=== PATIENT | male | born 1945 | race Caucasian/White ===

== ENCOUNTER 2016-05-11 12:58 | Emergency (ER) | payer MEDICARE, BC ==
[2016-05-11 13:58] VITALS: BP 136/89
--- NOTE | 2016-05-11 15:24 | UC ---
Respiratory Complaint HPI - HPI Summary HPI Summary: cough for 6 weeks. For past week, feeling fatigued and low appetite. Feels feverish at times. Will cough to the point of gagging. Can't sleep well due to cough. Good appetite. Mild sinus congestion and PND. Nonsmoker, no asthma. - History of Current Complaint Chief Complaint: UCGeneralIllness Stated Complaint: COUGH Time Seen by Provider: 05/11/16 15:15 Hx Obtained From: Patient Onset/Duration: Gradual Onset, Lasting Weeks - 6 Timing: Constant Severity Initially: Mild Severity Currently: Moderate Character: Cough: Nonproductive Aggravating Factors: Exertion, Deep Breaths, Recumbent Position Alleviating Factors: Nothing Associated Signs And Symptoms: Positive: Dyspnea, Chills, Dizziness - when he has a coughing fit, URI, Nasal Congestion. Negative: Pleuritic Chest Pain, Wheezing, Hemoptysis - Risk Factors Pulmonary Embolism Risk Factors: Negative Cardiac Risk Factors: Hypertension, Elevated Lipids, CAD Pseudomonas Risk Factors: Negative Tuberculosis Risk Factors: Negative - Allergies/Home Medications Allergies/Adverse Reactions: Allergies Allergy/AdvReac Type Severity Reaction Status Date / Time Coffee Flavor AdvReac Vomiting Verified 12/23/14 12:02 Lemon Flavor AdvReac Vomiting Verified 12/23/14 12:02 PMH/Surg Hx/FS Hx/Imm Hx Endocrine History Of: Denies: Diabetes Cardiovascular History Of: Reports: Cardiac Disorders - CAD, Hypertension Denies: Pacemaker/ICD Respiratory History Of: Reports: COPD - Surgical History Surgical History: Yes Surgery Procedure, Year, and Place: CORNEA TRANSPLANT; TEETH REMOVED; TRIPLE BYPASS 2000; Rt WRIST-REMOVED CALCIUM; DOUBLE HERNIA HERNIA; CYST-BENIGN REMOVED FROM BACK; LUMBAR L3-5 HERNIATED DISC 03/27, shoulder surgery bilaterall. carpal tunnel - Family History Known Family History: Positive: Cardiac Disease, Hypertension - Social History Occupation: Retired Lives: With Family Alcohol Use: Rare Substance Use Type: None Smoking Status (MU): Former Smoker Type: Pipe Have You Smoked in the Last Year: No When Did the Patient Quit Smoking/Using Tobacco: ~1984 Review of Systems Constitutional: Fever - subjective, not measured, Chills, Fatigue Skin: Negative Eyes: Negative ENT: Nasal Discharge Respiratory: Cough - dry, hacking, can't stop once started Cardiovascular: Negative Gastrointestinal: Negative Genitourinary: Negative Motor: Negative Neurovascular: Negative Musculoskeletal: Negative Neurological: Negative Psychological: Negative All Other Systems Reviewed And Are Negative: Yes Physical Exam Triage Information Reviewed: Yes Appearance: Well-Appearing, No Pain Distress, Well-Nourished Vital Signs: Initial Vital Signs Temp 98.8 F 05/11/16 13:53 Pulse 93 05/11/16 13:53 Resp 16 05/11/16 13:53 BP 136/89 05/11/16 13:53 Pulse Ox 96 05/11/16 13:53 Vital Signs Reviewed: Yes Eye Exam: Normal Eyes: Positive: Conjunctiva Clear ENT: Positive: Pharyngeal erythema - mild, Nasal congestion, Nasal drainage, TMs normal. Negative: Tonsillar swelling, Tonsillar exudate, Trismus, Muffled/ hoarse voice Neck exam: Normal Neck: Positive: Supple Respiratory: Positive: Lungs clear - he can't take a breath without a hacking cough, Normal breath sounds, No respiratory distress, No accessory muscle use Cardiovascular Exam: Normal Musculoskeletal Exam: Normal Neurological Exam: Normal Psychological Exam: Normal Skin Exam: Normal UC Diagnostic Evaluation - Laboratory O2 Sat by Pulse Oximetry: 96 Diagnostic Studies Comment: CXR neg Respiratory Course/Dx - Differential Dx/Diagnosis Differential Diagnosis/HQI/PQRI: Bronchitis, Lower Resp Infection, Sinusitis Provider Diagnoses: bronchitis Discharge - Discharge Plan Condition: Stable Disposition: HOME Prescriptions: Cephalexin CAP* [Keflex CAP*] 500 mg PO TID #30 cap Hydrocodone Polistirex-Chlorph [Tussionex Pennkinetic Ext 10-8 mg/5Ml] 1 teasp PO BEDTIME PRN #60 ml MDD 5cc PRN Reason: Cough Patient Education Materials: Acute Bronchitis (ED) Referrals: Allison Hoover PA [Primary Care Provider] -
--- NOTE | 2016-05-11 15:51 | RAD ---
Indication: 6 weeks of cough. 2 views of the chest including dual energy PA views demonstrate no mediastinal shift. Heart is of normal size and configuration. Lung rose are clear. No changes noted since April 26, 2015. IMPRESSION: No active cardiopulmonary disease is noted. Patient is status post tracer thoracotomy.
== END 2016-05-11 16:12 | disposition home or self-care (01) ==
LOC: UCCORT 12:58
DX: J40 Bronchitis, not specified as acute or chronic (principal); R09.81 Nasal congestion; Z87.891 Personal history of nicotine dependence
CPT/HCPCS: 71020; 99212; G0463

== ENCOUNTER 2016-10-05 13:04 | Emergency (ER) | payer MEDICARE, BC ==
[2016-10-05 14:28] VITALS: BP 133/83
--- NOTE | 2016-10-05 14:41 | UC ---
Hand/Wrist HPI - HPI Summary HPI Summary: 71 yo male with right wrist pain/swelling and warmth x 3 day no injury hx gout hx right wrist surgery .30 yrs ago for "Calcium build up" - History Of Current Complaint Chief Complaint: UCUpperExtremity Stated Complaint: RIGHT WRIST COMPLAINT Time Seen by Provider: 10/05/16 14:32 Hx Obtained From: Patient Onset/Duration: Gradual Onset, Lasting Days Severity Initially: Moderate Severity Currently: Mild Pain Intensity: 3 Pain Scale Used: 0-10 Numeric Character Of Pain: Aching, Throbbing Aggravating Factor(s): Movement Alleviating: Rest Associated Signs And Symptoms: Positive: Swelling Related History: Dominant Hand Right - Allergies/Home Medications Allergies/Adverse Reactions: Allergies Allergy/AdvReac Type Severity Reaction Status Date / Time Coffee Flavor AdvReac Vomiting Verified 10/05/16 14:19 Lemon Flavor AdvReac Vomiting Verified 10/05/16 14:19 PMH/Surg Hx/FS Hx/Imm Hx Previously Healthy: Yes Endocrine History: Hypothyroidism, Dyslipidemia Cardiovascular History: Cardiac Disease, Hypertension - Surgical History Surgical History: Yes Surgery Procedure, Year, and Place: Right CORNEAL TRANSPLANT; TEETH REMOVED; TRIPLE BYPASS 2000; Rt WRIST-REMOVED CALCIUM; Laparoscopic inguinal hernia repair; CYST-BENIGN REMOVED FROM BACK; LUMBAR L3-5 HERNIATED DISC 03/27, shoulder surgery bilateral. carpal tunnel, Placement Lumbar dorsal column stimulator 2012, Hammer toes and bunionectomy bilateral feet - Family History Known Family History: Positive: Cardiac Disease, Hypertension - Social History Alcohol Use: None Substance Use Type: None Smoking Status (MU): Former Smoker Type: Pipe Have You Smoked in the Last Year: No When Did the Patient Quit Smoking/Using Tobacco: ~1984 Review of Systems Constitutional: Negative Skin: Negative Eyes: Negative ENT: Negative Respiratory: Negative Cardiovascular: Negative Gastrointestinal: Negative Genitourinary: Negative Motor: Negative Neurovascular: Negative Musculoskeletal: Arthralgia Neurological: Negative Psychological: Negative All Other Systems Reviewed And Are Negative: Yes Physical Exam Triage Information Reviewed: Yes Appearance: Well-Appearing, No Pain Distress, Well-Nourished Vital Signs: Initial Vital Signs Temp 97.8 F 10/05/16 14:22 Pulse 85 10/05/16 14:22 Resp 20 10/05/16 14:22 BP 133/83 10/05/16 14:22 Pulse Ox 98 10/05/16 14:22 Eyes: Positive: Conjunctiva Clear ENT: Negative: Hearing grossly normal, Nasal congestion, Nasal drainage, Trismus , Muffled/hoarse voice Neck: Positive: Supple, Nontender Respiratory: Positive: Lungs clear, Normal breath sounds, No respiratory distress, No accessory muscle use Cardiovascular: Positive: RRR, No Murmur. Negative: Tachycardia, Bradycardia Musculoskeletal: Positive: ROM Limited @ - right wrist, Other: - right wrist swollen and warm Neurological: Positive: Alert, Muscle Tone Normal Psychological Exam: Normal Skin Exam: Normal Hand/Wrist Course/Dx - Course Course Of Treatment: has carpal tunnel splint at home - Differential Dx/Diagnosis Provider Diagnoses: right wrist pain. DJD, ? gout vs pseudogout Discharge - Discharge Plan Condition: Stable Disposition: HOME Prescriptions: Prednisone [Deltasone] 40 mg PO DAILY #10 tab Patient Education Materials: Swollen Joint (ED) Referrals: Allison Hoover PA [Primary Care Provider] - Additional Instructions: wear your carpal tunnel splint as needed for comfort we will start a short course of prednisone in case this is gout or pseudo gout see your orthopedist later this week for follow up
--- NOTE | 2016-10-05 15:06 | RAD ---
INDICATION: Right wrist pain and swelling. TECHNIQUE: 3 views of the right wrist were obtained. FINDINGS: There is prominent soft tissue swelling present along the dorsal medial aspect of the wrist. There is deformity of the distal ulna possibly related to an old fracture. No acute fracture is seen. There is moderate to severe osteoarthritic change in the first carpal metacarpal joint. There are multiple surgical clips which project along the volar lateral aspect of the wrist. There are prominent vascular calcifications present. IMPRESSION: SOFT TISSUE SWELLING, NO EVIDENCE FOR ACUTE OSSEOUS ABNORMALITY.
== END 2016-10-05 15:19 | disposition home or self-care (01) ==
LOC: UCCORT 13:04
DX: M25.531 Pain in right wrist (principal); M19.031 Primary osteoarthritis, right wrist; E03.9 Hypothyroidism, unspecified; E78.5 Hyperlipidemia, unspecified; I10 Essential (primary) hypertension; Z87.891 Personal history of nicotine dependence
CPT/HCPCS: 99212; G0463

== ENCOUNTER 2017-10-27 13:12 | Emergency (ER) | payer MEDICARE, BC ==
[2017-10-27 13:58] VITALS: BP 111/73
--- NOTE | 2017-10-27 15:08 | RAD ---
HISTORY: fell out of bed 18 inches height COMPARISONS: None VIEWS: 3, Frontal, lateral, and oblique views of the left foot FINDINGS: BONE DENSITY: Normal. BONES: There is post surgical change to the first metatarsal. There is evidence of osteotomy of the proximal phalanx of the second digit. A calcaneal enthesophyte is noted. There is no acute displaced fracture or dislocation. 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 ALIGNMENT: There is no dislocation. SOFT TISSUES: There is peripheral arterial calcification. OTHER FINDINGS: None. IMPRESSION: 1. POST SURGICAL CHANGE. 2. PERIPHERAL ARTERIAL DISEASE. 3. NO ACUTE OSSEOUS INJURY. IF SYMPTOMS PERSIST, RECOMMEND REPEAT IMAGING
--- NOTE | 2017-10-27 15:15 | RAD ---
Indication: Right knee pain. 4 views of the right knee demonstrates no fracture. No other bone or joint abnormality is identified. IMPRESSION: No fracture of the right knee is noted
--- NOTE | 2017-10-27 15:15 | UC ---
Lower Extremity/Ankle HPI - HPI Summary HPI Summary: Pt reports that he rolled out of bed yesterday morning and fell on to right knee and "rolled" left ankle and foot. No c/o right knee pain, erythema, selling and left foot swelling, redness and swelling. Is able to bear weight but c/o being painful. - History of Current Complaint Chief Complaint: UCGeneralIllness Stated Complaint: left foot,right knee complaints Time Seen by Provider: 10/27/17 14:38 Hx Obtained From: Patient Onset/Duration: Gradual Onset, Still Present, Worse Since - onset Severity Initially: Mild Severity Currently: Moderate Pain Intensity: 9 Aggravating Factor(s): Standing, Ambulation Alleviating Factor(s): Rest Able to Bear Weight: Yes - Risk Factors Gout Risk Factors: Age Over 40, Male, Hyperlipidemia DVT Risk Factors: Negative Septic Arthritis Risk Factor: Negative - Allergies/Home Medications Allergies/Adverse Reactions: Allergies Allergy/AdvReac Type Severity Reaction Status Date / Time coffee (Coffea arabica) Allergy Vomiting Verified 10/27/17 13:47 lemon Allergy Vomiting Verified 10/27/17 13:47 Home Medications: Home Medications Loteprednol Etabonate [Alrex] 1 drop DAILY 10/27/17 [History Confirmed 10/27/17] PMH/Surg Hx/FS Hx/Imm Hx Endocrine History: Thyroid Disease, Dyslipidemia Cardiovascular History: Cardiac Disease, Hypertension - Surgical History Surgical History: Yes Surgery Procedure, Year, and Place: Right CORNEAL TRANSPLANT; TEETH REMOVED; TRIPLE BYPASS 2000; Rt WRIST-REMOVED CALCIUM; Laparoscopic inguinal hernia repair; CYST-BENIGN REMOVED FROM BACK; LUMBAR L3-5 HERNIATED DISC 03/27, shoulder surgery bilateral. carpal tunnel, Placement Lumbar dorsal column stimulator 2012, Hammer toes and bunionectomy bilateral feet. RIGHT HEEL - Family History Known Family History: Positive: Cardiac Disease, Hypertension - Social History Occupation: Retired Alcohol Use: Occasionally Alcohol Amount: GLASS OF WINE EVERY 3 WEEKS Substance Use Type: None Smoking Status (MU): Former Smoker Type: Pipe Have You Smoked in the Last Year: No When Did the Patient Quit Smoking/Using Tobacco: ~1984 Review of Systems Constitutional: Negative Skin: Other - swelling and erythmea, right knee and left foot. ENT: Negative Respiratory: Negative Cardiovascular: Negative Gastrointestinal: Negative Genitourinary: Negative Motor: Negative Neurovascular: Negative Musculoskeletal: Arthralgia, Edema - right knee, left foot, Myalgia Neurological: Negative Psychological: Negative Is Patient Immunocompromised?: No All Other Systems Reviewed And Are Negative: Yes Physical Exam Triage Information Reviewed: Yes Appearance: Well-Appearing, Pain Distress Vital Signs: Initial Vital Signs Temp 99.3 F 10/27/17 13:50 Pulse 103 10/27/17 13:50 Resp 16 10/27/17 13:50 BP 111/73 10/27/17 13:50 Pulse Ox 97 10/27/17 13:50 Vital Signs Reviewed: Yes Eye Exam: Normal ENT: Positive: Hearing grossly normal Neck exam: Normal Respiratory: Positive: No respiratory distress Musculoskeletal Exam: Other Musculoskeletal: Positive: ROM Limited @ - left foot; right knee cap erythematous, warm to touch, Edema @ - right anterior knee, left foot Neurological Exam: Normal Psychological Exam: Normal Skin Exam: Other - erythema, right anteroir knee, and left foot Diagnostics - Radiology No standard instances Radiology Interpretation Completed By: Radiologist - IMPRESSION: No fracture of the right knee is noted IMPRESSION: 1. POST SURGICAL CHANGE. 2. PERIPHERAL ARTERIAL DISEASE. 3. NO ACUTE OSSEOUS INJURY. IF SYMPTOMS PERSIST, RECOMMEND REPEAT IMAGING Lower Extremity Course/Dx - Differential Dx/Diagnosis Differential Diagnosis/HQI/PQRI: Bursitis, Cellulitis, Fracture (Closed), Gout Provider Diagnoses: right knee bursitis. left foot contusion. cellulitis Discharge - Sign-Out/Discharge Documenting (check all that apply): Patient Departure - Discharge Plan Condition: Stable Disposition: HOME Prescriptions: Cephalexin CAP* [Keflex 500 CAP*] 500 mg PO Q8H #21 cap Patient Education Materials: Knee Bursitis (ED), Foot Contusion (ED), R.I.C.E. Treatment (ED) Referrals: Beckie Srivastava MD [Primary Care Provider] - If Needed - Billing Disposition and Condition Condition: STABLE Disposition: Home
== END 2017-10-27 15:32 | disposition home or self-care (01) ==
LOC: UCCORT 13:12
DX: S90.32XA Contusion of left foot, initial encounter (principal); M71.561 Other bursitis, not elsewhere classified, right knee; L03.115 Cellulitis of right lower limb; Z91.018 Allergy to other foods; W06.XXXA Fall from bed, initial encounter; X50.1XXA Overexertion from prolonged static or awkward postures, initial encounter; Y92.9 Unspecified place or not applicable; Z87.891 Personal history of nicotine dependence
CPT/HCPCS: 99212; G0463

== ENCOUNTER 2018-04-19 09:29 | Emergency (ER) | payer MEDICARE, BC ==
--- NOTE | 2018-04-19 10:31 | UC ---
General HPI - HPI Summary HPI Summary: started w/ confusion per girlfriend Wed night at 2am: taking shower, wanting to take the dog to vet. Pt does not recall this. HE then went back to sleep. Denied any other symptoms until he had diarrhea x2 this AM. Right now pt. states he feels a little foggy and has had a headache for over a month since his cataract surgery. denies n/v, chest pain , sob, change in gait or speech. Girlfriend reports he has not been eating but otherwise urinating normally/ drinking normally. Of note he did take ambien but has not taken his opiate x2 days, he usually takes daily. - History of Current Complaint Chief Complaint: UCAlteredMentalStatus Stated Complaint: CHILLS,HEADACHE,DIARRHEA Time Seen by Provider: 04/19/18 10:30 Onset/Duration: Sudden Onset - Allergy/Home Medications Allergies/Adverse Reactions: Allergies Allergy/AdvReac Type Severity Reaction Status Date / Time coffee (Coffea arabica) Allergy Vomiting Verified 10/27/17 13:47 lemon Allergy Vomiting Verified 10/27/17 13:47 Home Medications: Home Medications See Med List Of 04/19/18 04/19/18 [History] PMH/Surg Hx/FS Hx/Imm Hx Previously Healthy: Yes Endocrine History: Thyroid Disease Cardiovascular History: Cardiac Disease, Hypertension - Surgical History Surgical History: Yes Surgery Procedure, Year, and Place: Right CORNEAL TRANSPLANT; TEETH REMOVED; TRIPLE BYPASS 2000; Rt WRIST-REMOVED CALCIUM; Laparoscopic inguinal hernia repair; CYST-BENIGN REMOVED FROM BACK; LUMBAR L3-5 HERNIATED DISC 03/27, shoulder surgery bilateral. carpal tunnel, Placement Lumbar dorsal column stimulator 2012, Hammer toes and bunionectomy bilateral feet. RIGHT HEEL - Family History Known Family History: Positive: Cardiac Disease, Hypertension - Social History Alcohol Use: Occasionally Alcohol Amount: GLASS OF WINE EVERY 3 WEEKS Substance Use Type: None Smoking Status (MU): Former Smoker Type: Pipe Have You Smoked in the Last Year: No When Did the Patient Quit Smoking/Using Tobacco: ~1984 Review of Systems All Other Systems Reviewed And Are Negative: Yes Constitutional: Negative: Fever, Chills, Fatigue Skin: Negative: Rash Eyes: Negative: Blurred Vision Respiratory: Negative: Shortness Of Breath Cardiovascular: Negative: Palpitations, Chest Pain Gastrointestinal: Positive: Diarrhea - x2, Other - denies blood in stool. Negative: Abdominal Pain, Vomiting Genitourinary: Negative: Dysuria Motor: Negative: Weakness Musculoskeletal: Negative: Edema, Myalgia Neurological: Negative: Weakness, Numbness Psychological: Negative: Anxious Physical Exam Triage Information Reviewed: Yes Respiratory Exam: Normal Cardiovascular Exam: Normal Abdomen Description: Positive: Nontender, Soft Neurological: Positive: Alert, Other: - NOrmal speech, CN II-XII grossly intact , good instructional manager/strength bilat UE. Gait normal.. Negative: Fatigued, Lethargic Psychological: Positive: Normal Response To Family Diagnostics - EKG Cardiac Rate: NL Cardiac Rhythm: Sinus: Normal Ectopy: PACs ST Segment: Normal Course/Dx - Course Course Of Treatment: Episode of altered mental status in elderly, today on exam no neuro deficits and he cannot recall that particular episode. He is here w/ girlfriend who reports this. Vitals good but diastolic being monitored and med list reviewed: ambien and opiates are of concern for contributing. He did have 2 episodes of diarrhea this AM but the significance of this is still in question. he will need further work up at the ED to r/o other causes of AMS changes including blood work and imaging. HE has been sent via ambulance. - Differential Dx - Multi-Symptom Differential Diagnoses: CVA, Sepsis, Urinary Tract Infection, Other - Diagnoses Provider Diagnosis: Altered mental status Discharge - Sign-Out/Discharge Documenting (check all that apply): Patient Departure All imaging exams completed and their final reports reviewed: No Studies - Discharge Plan Condition: Fair Disposition: TRANSFERRED TO [facility] Patient Education Materials: Altered Mental Status (ED) Referrals: Beckie Srivastava MD [Primary Care Provider] - Additional Instructions: YOu will be going via ambulance to hospital for altered mental status. - Billing Disposition and Condition Condition: FAIR [facility]
[2018-04-19 10:52] VITALS: BP 130/58
== END 2018-04-19 11:09 | disposition swing bed (61) ==
LOC: UCCORT 09:29
DX: R41.82 Altered mental status, unspecified (principal); I10 Essential (primary) hypertension; Z87.891 Personal history of nicotine dependence
CPT/HCPCS: 93005; 99213; G0463